=== PATIENT | male | born 1965 | race Caucasian/White ===

== ENCOUNTER 2018-10-22 05:45 | Day surgery (SDC) | payer OTHER, MEDICARE ==
[2018-10-20 11:00] VITALS: BP 125/82
[2018-10-20 11:15] LABS: BASOPHILS % (AUTO) 0.5 % (0.0-5.0); EOSINOPHILS % (AUTO) 1.6 % (0.0-8.0); HEMATOCRIT 46.8 % (42-54); LYMPHOCYTES % (AUTO) 25.5 % (21.0-51.0); MEAN CORPUSCULAR HEMOGLOBIN 34.6 pg (27.0-33.0); MEAN CORPUSCULAR HGB CONC 35.1 g/dL (32.0-36.0); MEAN CORPUSCULAR VOLUME 98.6 fL (79-99); MONOCYTES % (AUTO) 7.7 % (3.0-13.0); NEUTROPHILS % (AUTO) 64.7 % (40.0-77.0); PLATELET COUNT (AUTO) 244 K/uL (130-400); RED BLOOD CELL COUNT(AUTO) 4.75 MIL/uL (4.50-6.20); RED CELL DISTRIBUTION WIDTH 13.3 % (11.0-15.5); WHITE BLOOD COUNT (AUTO) 6.4 K/uL (4.8-10.8)
[2018-10-20 11:21] LABS: CREATININE 1.1 mg/dL (0.5-1.5); POTASSIUM 4.2 mmol/L (3.5-5.1)
[2018-10-20 11:31] LABS: INR 0.96 (0.85-1.15); PARTIAL THROMBOPLASTIN TIME 35.7 SEC (26.3-35.5); PROTHROMBIN TIME 10.1 SEC (9.6-11.6)
[~2018-10-22] VITALS: Ht 180.3 cm; Wt 79.9 kg
[2018-10-22] VITALS (9 sets, daily range): BP systolic 109–133; BP diastolic 65–80
[~2018-10-22 05:45] MED LIST: BUDE10.2 IH; CEFAZOLIN SODIUM 1 GM VIAL IVP SCH; CLOP75TA32 PO; HYDR-4068 PO; ISOS30TA6 PO; METO-408 PO; OXYC18CA PO; SODIUM CHLORIDE 0.9% 1000ML 1,000 ML IV SCH
[2018-10-22] MEDS ORDERED: BUPIVACAINE/PF 0.25% 50ML VIAL IJ ONE (07:20)
[2018-10-22] MEDS ORDERED: LIDOCAINE HCL 1% MDV 50ML VIAL ONE (07:20)
[2018-10-22] MEDS ORDERED: CEFAZOLIN SODIUM 1 GM VIAL ONE (07:21)
[2018-10-22] MEDS ORDERED: MEPERIDINE-PF 25 MG/ML SYG ONE ×3 (07:50→08:27)
[2018-10-22] MEDS ORDERED: MIDAZOLAM HCL 1 MG/ML 2ML VIAL ONE ×3 (07:50→08:27)
[2018-10-22] MEDS ORDERED: ACETAMINOPHEN-CODEINE 300/30MG TAB PO PRN ×2 (09:30)
[2018-10-22] MEDS ORDERED: ACETAMINOPHEN 325 MG TAB PO PRN (09:30)
== END 2018-10-22 12:38 | disposition home or self-care (01) ==
LOC: DAH 05:45
PROVIDERS: ATTEND Internal Medicine Cardiovascular Disease
DX: T82.897A Other specified complication of cardiac prosthetic devices, implants and grafts, initial encounter (principal); I25.5 Ischemic cardiomyopathy; Z79.899 Other long term (current) drug therapy; Z98.890 Other specified postprocedural states; J44.9 Chronic obstructive pulmonary disease, unspecified; Z87.891 Personal history of nicotine dependence; I21.3 ST elevation (STEMI) myocardial infarction of unspecified site; E78.00 Pure hypercholesterolemia, unspecified; K21.9 Gastro-esophageal reflux disease without esophagitis; I11.0 Hypertensive heart disease with heart failure; I50.22 Chronic systolic (congestive) heart failure
CPT/HCPCS: 33263; 36415; 80048; 85025; 85610; 85730; 93005; C1721; J0690; J2175 ×3; J2250 ×3; J3490 ×2; J7030; 99156; 99157; C1785